=== PATIENT | female | born 1990 | race Caucasian/White ===

== ENCOUNTER 2020-04-16 18:11 | Emergency (ER) | payer MEDICARE, MEDICAID, SELFPAY ==
[2020-04-16 18:13] VITALS: BP 145/114; PULSE 100; RESP 16; TEMP 36.6; O2SAT 100
[2020-04-16 18:40] VITALS: BP 145/90; PULSE 92; RESP 21; O2SAT 99
[2020-04-16 18:44] LABS: Basophils Absolute Auto 0.1 K/mm3 (0.0-0.1); Basophils Percent Auto 0.4 % (0.2-1.2); Eosinophils Absolute Auto 0.2 K/mm3 (0-0.3); Eosinophils Percent Auto 1.7 % (0-4.4); Hematocrit 43.2 % (37.0-47.0); Hemoglobin 14.2 g/dL (12.0-15.0); Immature Granulocyte Absolute 0.06 K/mm3 (0.00-0.031); Immature Granulocyte Percent A 0.5 % (0-0.5); Lymphocytes Absolute Auto 2.43 K/mm3 (0.9-3.2); Lymphocytes Percent Auto 18.8 % (18.3-44.2); Mean Corpuscular HGB Conc 32.9 g/dl (32-36); Mean Corpuscular Hemoglobin 26.9 pg (26-34); Mean Corpuscular Volume 81.8 fl (80-100); Mean Platelet Volume 9.5 fl (7.4-10.4); Monocytes Percent Auto 7.7 % (2.6-8.5); Neutrophils Absolute Auto 9.2 K/mm3 (1.3-6.7); Neutrophils Percent Auto 70.9 % (45.5-73.1); Platelet Count Result 401 k/mm3 (150-375); Red Blood Count 5.28 M/mm3 (4.2-5.4); Red Cell Distribution Width 14.5 % (11.5-14.5); White Blood Count 12.9 K/mm3 (4.5-10.0)
--- NOTE | 2020-04-16 18:47 | ECG_ITS ---
Measurements Intervals [place] Rate: 92 P: 46 ME: 151 QRS: 12 QRSD: 105 T: 31 QT: 366 QTc: 454 Interpretive Statements SINUS RHYTHM DELAYED PRECORDIAL R/S TRANSITION BASELINE ARTIFACT- I, II, AVR, AVL, AVF, V1 BORDERLINE ECG Electronically Signed On 04-17-2020 7:52:32 [employer] by Robert Farmer D.O.
[2020-04-16 18:55] LABS: Anion Gap 11 mmol/L (8-16); Blood Urea Nitrogen 15 mg/dL (7-17); Calcium 8.9 mg/dL (8.4-10.2); Carbon Dioxide 27 mmol/L (22-30); Chloride 102 mmol/L (98-107); Estimated CRCL calculation 143 ml/min; Estimated Glomerular Filt Rate > 60; Glucose 95 mg/dL (65-105); Potassium 3.3 mmol/L (3.4-5.0); Sodium 140 mmol/L (137-145)
--- NOTE | 2020-04-16 18:56 | ED.ARRPALP ---
HPI - Arrhythmia/Palpitations General Chief Complaint: Arrhythmia/Palpitations Stated Complaint: Possibly in SVT as reported by patient Time Seen by Provider: 04/16/20 18:26 History of Present Illness HPI narrative: Patient is a 29-year-old female who presents ER with concerns for SVT. Patient has history of SVT. She takes Toprol 25 mg in the evening and 12.5 mg in the morning. However last week she is quit taking her evening dose after she was found to have a lower heart rate than typical. Patient recently underwent gastric sleeve weight loss surgery. She is down over 20 pounds. She has been adhering to a liquid diet and recently added grits. After eating she began to feel discomfort in her abdomen and went to the bathroom. She then noticed that her heart rate had been elevated in the 90s and went up to the low 100s. Patient then lost follow-up and is feeling more rapid heart rate and states her heart rate went up to as high as 160 bpm. She contacted her surgeon who recommended she come to the ER for further evaluation. At this time she is symptom-free. She is having no chest pain or shortness of breath. She does not feel like her heart is racing. She has had no issues with her incision sites. No pain with deep breath. Related Data Home Medications Medication Instructions Recorded Confirmed esomeprazole magnesium [Nexium] 20 mg PO DAILY 04/16/20 famotidine 40 mg PO DAILY 04/16/20 levothyroxine [Synthroid] 75 mcg PO DAILY 04/16/20 metoprolol succinate 12.5 mg PO DAILY 04/16/20 Allergies Allergy/AdvReac Type Severity Reaction Status Date / Time No Known Allergies Allergy Verified 04/16/20 18:16 Review of Systems Review of Systems: All systems reviewed & are unremarkable except as noted in HPI and below Constitutional: Constitutional: Denies chills, Denies fever(s) and Denies weakness ENT: Denies nasal congestion and Denies sore throat Cardiovascular: Cardiovascular: Denies chest pain, Reports rapid heart rate and Denies radiating jaw, neck or arm pain Respiratory: Respiratory: Denies cough and Denies dyspnea Gastrointestinal: Gastrointestinal: Denies abdominal pain, Denies diarrhea, Reports nausea and Denies vomiting [facility] Past Medical History Medical History (Updated 04/16/20 @ 19:11 by Bran Huitron MD) GERD (gastroesophageal reflux disease) Hypothyroidism SVT (supraventricular tachycardia) Surgical History Surgical History (Updated 04/16/20 @ 19:03 by Bran Huitron MD) H/O gastric bypass Exam Narrative: Exam Narrative: GENERAL: Well-appearing, well-nourished, and in no acute distress. HEAD: Normocephalic, atraumatic. CHEST: Clear to auscultation. No respiratory distress. HEART: Regular rate and rhythm. Normal peripheral pulses. ABDOMEN: Soft, nontender, nondistended. EXTREMITIES: Normal range of motion. No edema. SKIN: Warm, dry, well healing surgical scars on abdomen. NEURO: Alert and oriented x3. PSYCH: Normal mood and affect. Course Course Emergency Course: Pt resting comfortably. No SVT. Sx not c/w DVT/PE. No electrolyte abnormality. D/c. Vital Signs Vital signs: Vital Signs Temperature 97.8 F 04/16/20 18:13 Pulse Rate 100 04/16/20 18:13 Respiratory Rate 16 04/16/20 18:13 Blood Pressure 145/114 H 04/16/20 18:13 Pulse Oximetry 100 04/16/20 18:13 Temperature 97.8 F 04/16/20 18:13 Pulse Rate 92 04/16/20 18:40 Respiratory Rate 21 H 04/16/20 18:40 Blood Pressure 145/90 H 04/16/20 18:40 Pulse Oximetry 99 04/16/20 18:40 MDM - Arrhythmia/Palpitations Lab Data Result diagrams: 04/16/20 18:37 04/16/20 18:37 Labs: Lab Results 04/16/20 04/16/20 Range/Units 18:37 18:37 WBC 12.9 H (4.5-10.0) K/mm3 RBC 5.28 (4.2-5.4) M/mm3 Hgb 14.2 (12.0-15.0) g/dL Hct 43.2 (37.0-47.0) % MCV 81.8 (80-100) fl MCH 26.9 (26-34) pg MCHC 32.9 (32-36) g/dl RDW 14.5 (11.5-14.5) % Plt Coun
[2020-04-16 19:24] VITALS: BP 129/71; PULSE 74; RESP 18; O2SAT 99
== END 2020-04-16 19:35 | disposition home or self-care (01) ==
PROVIDERS: Emergency Provider Emergency Medicine; PCP Family Medicine
DX: R00.2 Palpitations (principal); Z98.84 Bariatric surgery status; K21.9 Gastro-esophageal reflux disease without esophagitis; E03.9 Hypothyroidism, unspecified; R94.31 Abnormal electrocardiogram [ECG] [EKG]
CPT/HCPCS: 36415; 80048; 85025; 93005; 99283